=== PATIENT | male | born 1955 | race Caucasian/White ===

== ENCOUNTER 2017-01-19 13:54 | Emergency (ER) | payer OTHER ==
[~2017-01-19] VITALS: Ht 188 cm; Wt 95.3 kg
--- NOTE | ~2017-01-19 | EKG ---
[address] [address] ELECTROCARDIOGRAM REPORT Name: YENY SMALLS Room [id number] Admission: 01/19/17 Attend Phys: Discharge: 01/19/17 Date of : 57 Report #: [id number] THIS REPORT FOR: //name// [facility] ED Test Date: 2017-01-19 Test Time: 15:15:35 Pat Name: YENY SMALLS Department: Room: Gender: M [address] Magistrate: [place] : 1955 Requested By: Jacky Scott Order Number: [id number] MD: Agapito Washington Measurements Intervals [place] Rate: 70 P: 48 [place]: 159 QRS: 23 QRSD: 90 T: 29 QT: 401 QTc: 433 Interpretive Statements Sinus rhythm No significant abnormality Compared to ECG 04/10/2015 15:22:52 No significant changes Electronically Signed On 01-21-2017 8:33:27 CDT by Agapito Washington [email or web address] <ELECTRONICALLY SIGNED> By: Agapito Washington MD, [facility] 01/21/17 0833 1515 1515 Agapito Washington MD, FACC /EPI
[~2017-01-19 13:54] MED LIST: BACTRIM DS TAB1 EACH PO; CLEOCIN HCL150 MG PO; CLOTRIMAZOLE 1%15 G1 TOP; CYCLOBENZAPRINE5 MG PO; FISH OIL 1,0001 EAC5 PO; FLEXERIL PO; NAPROSYN500 MG PO; NORCO 7.5-3251 EACH PO; NORFLEX100 MG PO; TRAMADOL 50 MG50 MG PO; ULTRAM 50MG TAB50 MG PO; VASOTEC20 MG PO
[2017-01-19 15:55] LABS: ABSOLUTE NEUTROPHILS 4.9 thou/uL (1.4-8.2); EOSINOPHILS 2.4 % (0.0-3.0); HEMATOCRIT 46.2 % (42.0-52.0); HEMOGLOBIN 16.2 gm/dL (14.0-18.0); LYMPHOCYTES 21.2 % (24.0-44.0); MANUAL DIFF NO; MCH 31.5 pg (26.0-34.0); MCHC 35.1 g/dL (28.0-37.0); MCV 89.7 fL (80.0-100.0); MONOCYTES 8.3 % (1.0-8.0); PLATELET COUNT 233 thou/uL (150-400); POLYS 67.1 % (36.0-66.0); RBC 5.15 mil/uL (4.50-6.00); RDW 13.6 % (10.5-14.5); WBC 7.2 thou/uL (4.0-11.0)
[2017-01-19 16:02] LABS: ANION GAP 8 mmol/L (7-16); BUN 14 mg/dL (7-18); CALCIUM 9.1 mg/dL (8.5-10.1); CHLORIDE 105 mmol/L (98-107); CO2 28 mmol/L (21-32); CREATININE 0.8 mg/dL (0.7-1.3); GLUCOSE 89 mg/dL (74-106); POTASSIUM 3.7 mmol/L (3.5-5.1); SODIUM 141 mmol/L (136-145)
[2017-01-19 16:27] LABS: ALKALINE PHOSPHATASE 44 U/L (46-116); MAGNESIUM 2.2 mg/dL (1.8-2.4); NT-PRO BRAIN NAT PEPTIDE 57 pg/mL (<300); SGOT 22 U/L (15-37); SGPT 36 U/L (30-65); TOTAL BILIRUBIN 0.6 mg/dL (<0.1-1.0); TROPONIN-I < 0.04 ng/mL (<0.04-0.07)
[2017-01-19] MEDS ORDERED: NAPROSYN500 MG PO (17:23)
[2017-01-19] MEDS ORDERED: ROBAXIN500 MG PO (17:23)
[2017-01-19 17:57] VITALS: BP 167/94
== END 2017-01-19 18:00 | disposition home or self-care (01) ==
LOC: ER 13:54
PROVIDERS: Emergency Medicine
DX: M54.5 Low back pain (principal); G89.29 Other chronic pain; R07.9 Chest pain, unspecified; R91.1 Solitary pulmonary nodule; I10 Essential (primary) hypertension; E78.00 Pure hypercholesterolemia, unspecified

== ENCOUNTER 2017-07-07 10:26 | Emergency (ER) | payer OTHER ==
[~2017-07-07] VITALS: Ht 188 cm; Wt 97.5 kg
[~2017-07-07 10:26] MED LIST changes: +ROBAXIN500 MG PO
[2017-07-07] MEDS ORDERED: MOBIC7.5 MG PO (13:01)
[2017-07-07] MEDS ORDERED: HYDROCODONE-AP1 EAC6 PO (13:12)
[2017-07-07 13:41] VITALS: BP 158/85
== END 2017-07-07 13:40 | disposition home or self-care (01) ==
LOC: ER 10:26
DX: S92.421A Displaced fracture of distal phalanx of right great toe, initial encounter for closed fracture (principal); S66.911A Strain of unspecified muscle, fascia and tendon at wrist and hand level, right hand, initial encounter; S66.912A Strain of unspecified muscle, fascia and tendon at wrist and hand level, left hand, initial encounter; M25.562 Pain in left knee; M25.511 Pain in right shoulder; I10 Essential (primary) hypertension; E78.00 Pure hypercholesterolemia, unspecified; V13.4XXA Pedal cycle driver injured in collision with car, pick-up truck or van in traffic accident, initial encounter; Y93.I9 Activity, other involving external motion; Y92.89 Other specified places as the place of occurrence of the external cause; Y99.8 Other external cause status